=== PATIENT | male | born 1980 | race African-American/Black ===

== ENCOUNTER 2016-12-19 05:24 | Emergency (ER) | payer SELFPAY ==
[~2016-12-19] VITALS: Ht 180.3 cm; Wt 73.5 kg
[2016-12-19] MEDS ORDERED: ONDANSETRON ODT 4 MG TAB PO ONE ×2 (05:30→05:45)
[2016-12-19 05:56] LABS: Basophils # (auto) 0 uL; Basophils % (auto) 0.6 % (0.0-2.0); CONDITION Y; Eosinophils # (auto) 0.1 uL; Eosinophils % (auto) 2.8 % (0.0-7.0); Hematocrit 45.6 % (41.0-53.0); Hemoglobin 15.3 g/dL (13.5-17.5); Lymphocytes # (auto) 1.6 uL; Lymphocytes % (auto) 33.7 % (10.0-50.0); Mean Corpuscular Hemoglobin 32.3 pg (28.0-32.0); Mean Corpuscular Hgb Conc. 33.5 g/dL (32.0-36.0); Mean Corpuscular Volume 96.7 fL (80.0-100.0); Mean Platelet Volume 8.6 fL (7.4-10.4); Monocytes # (auto) 0.3 uL; Monocytes % (auto) 5.6 % (0.0-12.0); Neutrophils # (auto) 2.8 uL; Neutrophils % (auto) 57.3 % (37.0-80.0); Platelet Count (auto) 232 10^3/uL (140-450); Red Cell Distribution Width 12.4 % (11.6-16.0); White Blood Cell 4.9 10^3/uL (4.4-10.8)
[2016-12-19 06:15] LABS: Albumin 3.6 g/dL (3.4-5.0); Calcium 8.2 mg/dL (8.5-10.1); Potassium 4.2 mmol/L (3.5-5.1)
[2016-12-19 06:25] LABS: BUN/Creatinine Ratio 14.3; Bilirubin, Total 0.2 mg/dL (0.2-1.0)
[2016-12-19 09:53] VITALS: BP 104/57
== END 2016-12-19 11:03 | disposition home or self-care (01) ==
LOC: ER 05:24
DX: R11.2 Nausea with vomiting, unspecified (principal); R10.13 Epigastric pain; R19.7 Diarrhea, unspecified
CPT/HCPCS: 36415; 74176; 80053; 85025; 99285; J7030; Q0162

== ENCOUNTER 2022-03-24 06:41 | Emergency (ER) | payer MEDICAID, OTHER ==
[~2022-03-24] VITALS: Ht 180.3 cm; Wt 73.8 kg
[2022-03-24 07:35] VITALS: BP 110/67
[2022-03-24] MEDS ORDERED: PRED20TA2 PO (07:56)
[2022-03-24] MEDS ORDERED: AZIT500T66 PO (07:56)
== END 2022-03-24 08:05 | disposition home or self-care (01) ==
LOC: ER 06:45
DX: J03.90 Acute tonsillitis, unspecified (principal)

== ENCOUNTER 2022-03-28 06:06 | Emergency (ER) | payer MEDICAID ==
[~2022-03-28] VITALS: Ht 182.9 cm; Wt 76.4 kg
[~2022-03-28 06:06] MED LIST: AZIT500T66 PO; PRED20TA2 PO
[2022-03-28 08:13] VITALS: BP 121/65
[2022-03-28] MEDS ORDERED: METH4PAK PO (08:25)
[2022-03-28] MEDS ORDERED: AMOX500T3 PO (08:25)
== END 2022-03-28 08:28 | disposition home or self-care (01) ==
LOC: ER 06:06
DX: J01.90 Acute sinusitis, unspecified (principal)